=== PATIENT | male | born 1980 ===

== ENCOUNTER → 2019-10-08 | Outpatient (CLI) | payer BC ==
--- NOTE | 2019-10-09 15:31 | US ---
EXAMINATION TYPE: US thyroid st tissue head/neck DATE OF EXAM: 10/08/2019 COMPARISON: NONE CLINICAL HISTORY: R22.0 Localized swelling, mass and lump. Visual palpable lump x many years. Patien t states it has been getting bigger. Patient states it does not hurt. Area of palpable scanned. Superificial oval lesion visualized, nonvascular = 2.2 x 1.8 x 1.1 cm Contralateral image taken. IMPRESSION: Probable sebaceous cyst. Correlate clinically.
== END | disposition home or self-care (01) ==
LOC: RADUSWWP 07:47
PROVIDERS: ATTEND Surgery Plastic and Reconstructive Surgery
DX: R22.0 Localized swelling, mass and lump, head (principal); R93.89 Abnormal findings on diagnostic imaging of other specified body structures
CPT/HCPCS: 76536

== ENCOUNTER 2019-11-20 06:54 | Day surgery (SDC) | payer BC ==
[2019-11-13 13:16] VITALS: BMI 27.8
--- NOTE | 2019-11-19 16:45 | P.GSHP ---
History of Present Illness H&P Date: 11/20/19 CHIEF COMPLAINT: Neck mass HISTORY OF PRESENT ILLNESS: The patient is a 38 year-old male with history of mass along the left neck. He presents today for surgical excision. PAST MEDICAL HISTORY: Please see list. PAST SURGICAL HISTORY: Please see list. MEDICATIONS: Please see list. ALLERGIES: Please see list. SOCIAL HISTORY: No illicit drug use FAMILY HISTORY: No reports of Crohn disease or ulcerative colitis. REVIEW OF ORGAN SYSTEMS: CONSTITUTIONAL: No reports of fevers or chills. GI: Denies any blood in stools or constipation. PHYSICAL EXAM: VITAL SIGNS: Stable SKIN: Well perfused. Good skin turgor. 3 cm lesion overlying the left neck Musculoskeletal: No clubbing cyanosis or edema GENERAL: Well developed and in no acute distress. Pleasant. HEENT: No sclera icterus. Extraocular movements grossly intact. Moist buccal mucosa. Head is atraumatic, normocephalic. Hears conversational speech. No nasal drainage. NECK: Supple without lymphadenopathy. No JV distention. CHEST: Non-labored respirations and equal bilateral excursions. CARDIOVASCULAR: Regular rate and rhythm. Palpable 2+ radial pulses. ABDOMEN: Soft. Non-tender. Nondistended. NEUROLOGIC: No focal or lateralizing signs. PSYCH: Appropriate affect. Alert and oriented to person, place and time. ASSESSMENT: 1. Left neck mass PLAN: 1. Will proceed of excision of left neck mass 2. DVT prophylaxis. 3. Antibiotic prophylaxis. 4. Time of recovery, at least one week. Past Medical History Additional Past Medical History / Comment(s): cyst left neck History of Any Multi-Drug Resistant Organisms: None Reported Past Surgical History: No Surgical Hx Reported Past Anesthesia/Blood Transfusion Reactions: No Reported Reaction Additional Past Anesthesia/Blood Transfusion Reaction / Comment(s): no hx general anesthesia or blood transfusion Smoking Status: Never smoker - Past Family History Mother Family Medical History: No Reported History Medications and Allergies Home Medications Medication Instructions Recorded Confirmed Type No Known Home Medications 11/13/19 11/13/19 History Allergies Allergy/AdvReac Type Severity Reaction Status Date / Time No Known Allergies Allergy Verified 11/13/19 13:11
[~2019-11-20 06:54] MED LIST: DEXAMETHASONE SOD PHOSPHATE 10 MG/ML 1 ML VIAL IV ONE; HEPARIN SODIUM,PORCINE 5,000 UNIT/ML 1 ML VIAL SQ STA; HYDROmorphone 0.5 MG/0.5 ML SYRINGE IVP PRN; LACTATED RINGERS 1,000 ML IV SCH; LIDOCAINE 1% 20 ML VIAL (10MG/ML) FOR IV START INTRADERMA PRN; MIDAZOLAM 2 MG/2 ML VIAL IV PRN; Pre Op ABX Message 1 EACH MISC MISCELLANE ONE
[2019-11-20] MEDS ORDERED: ONDANSETRON 4 MG/2 ML VIAL IVP ONE (07:18)
[2019-11-20] MEDS ORDERED: fentaNYL (PF) 50 MCG/ML 2 ML AMP ONE (07:55)
[2019-11-20] MEDS ORDERED: MIDAZOLAM 2 MG/2 ML VIAL ONE (07:55)
[2019-11-20] MEDS ORDERED: KETOROLAC 30 MG/ML 1 ML VIAL ONE (07:55)
[2019-11-20] MEDS ORDERED: LIDOCAINE 1% INJ 10MG/ML (20 ML MDV) ONE (07:55)
[2019-11-20] MEDS ORDERED: PROPOFOL 10 MG/ML 20 ML VIAL IV ONE (07:55)
[2019-11-20] MEDS ORDERED: ceFAZolin 1,000 MG VIAL IVPB ONE (07:58)
[2019-11-20] MEDS ORDERED: BUPIVACAIN-EPI 0.25%-1:200,000 30 ML VIAL SQ ONE (08:20)
[2019-11-20 09:16] VITALS: TEMP 97.1
[2019-11-20 09:28] VITALS: RESP 16
--- NOTE | 2019-11-20 09:48 | P.PCN ---
Date of Procedure: 11/20/19 Description of Procedure: SURGEON: LESTER GALE MD PEST CONTROL WORKER HELPER: None. PREOPERATIVE DIAGNOSES: 1. Left posterior neck mass, 4 cm POSTOPERATIVE DIAGNOSES: 1. Deep subfascial left posterior neck mass, 4 x 3 cm PROCEDURES PERFORMED: 1. Excision of deep subfascial posterior left neck mass, 4 x 3 cm 2. Complex closure of left posterior neck incision, 6-cm Anesthesia: GETA, local Estimated Blood Loss (ml): 5 Pathology: other (neck mass) Condition: stable Disposition: same day COMPLICATIONS: None. FINDINGS: 1. Complex solid mass left posterior neck deep to the fascia, 4 x 3 cm INDICATIONS: The patient is a 38-year-old male who presents with symptomatic left posterior neck tumor. Benefits and risks of surgical intervention were described including bleeding, infection. Informed consent was obtained. DESCRIPTION OR PROCEDURE: In the preoperative area, the area of concern was marked with indelible marker. Patient was brought into the operating room. After general induction, his neck was turned to the right shoulder. The left neck and left shoulder were prepped and draped in a standard sterile fashion with ChloraPrep. Timeout protocol was confirmed with the surgical team regarding the patient's name, procedure to be performed including preoperative medications. DVT prophy laxis was confirmed with SCDs. A field block was placed of the left neck. At the neck, the mass was measured and a transverse elliptical 4 x 3 cm posterior incision made incorporating the entirety of the mass using #15 blade. Electro-Bovie cautery including sharp dissection was used to circumferential dissect the tumor that extended deep to the platysmal fascia of the left neck at the posterior triangle. The tumor was removed in total. Hemostasis was excellent. Superior and inferior flaps were created to allow for closure. The incision was closed in layers 0-Vicryl was placed for fascia, 3-0 Vicryl for the deep subcutaneous tissue followed by 4-0 Monocryl for the dermis in a running subcuticular fashion. The skin was cleansed and Exofin tape with liquid was applied as a fourth layer. The incision was covered with Optifoam dressing. Local anesthetic was placed. At the end of the procedure, needle, sponge, and instrument count was verified correct by hand frame surgical elastic knitter. Operative findings was shared with the patient's family who were pleased with the level of care.
[2019-11-20 10:28] VITALS: BP 127/71; PULSE 81
== END 2019-11-20 10:28 | disposition home or self-care (01) ==
LOC: OR 06:54
PROVIDERS: ATTEND Surgery Plastic and Reconstructive Surgery
DX: L72.0 Epidermal cyst (principal)
CPT/HCPCS: 21556; 88304; J2250; J1644; J1100; J0690; J2405; J2001; J3010; J1885; J2704